=== PATIENT | female | born 1950 | race African-American/Black ===

== ENCOUNTER 2025-07-10 11:55 | Emergency (ER) | payer MEDICARE | END 2025-07-10 13:07 | disposition home or self-care (01) | LOC: NAV ERS 11:55 | DX: K04.7 Periapical abscess without sinus (principal); K02.9 Dental caries, unspecified; E11.9 Type 2 diabetes mellitus without complications; I10 Essential (primary) hypertension | CPT/HCPCS: 99283 ==